=== PATIENT | male | born 1945 | race African-American/Black ===

== ENCOUNTER 2021-07-05 14:51 | Emergency (ER) | payer OTHER ==
[~2021-07-05] VITALS: Ht 177.8 cm; Wt 63.5 kg
--- NOTE | ~2021-07-05 | EMS ---
[facility] [address] [place] [address] EMS Patient Care Report Name: ENMA VU Room #: DEP AMRIK Olivo#: [id number] Admission: 07/05/21 Attend Phys: Discharge: 07/05/21 Date of : 47 Report #: [id number] THIS REPORT FOR: //name// Report Transmitted: 07/07/2021 09:17 EMS Care Summary [place], [place]/[facility] Incident [id number] @ 07/05/2021 14:11 Incident Location [address] [id number] Patient ENMA VU Male, 75 Years 1945 Patient Address [address] [id number] Patient History Chronic Obstructive Pulmonary Disease (COPD),Hypertension (HTN),Hyperlipidemia,Cardiac Murmur, Patient Allergies No known allergies, Patient Medications Atorvastatin, Plavix, Albuterol, Ropinirole, Lasix, Spironolactone, Lisinopril, Losartan, Chief Complaint Respiratory Distress Disposition Transported No Lights/[place] Dispatch Reason Breathing Problem Transported To [facility] Narrative pt states that he has been w/o his prescribed Albuterol and Prednisone for awhile. pt states that he has a appointment w/ his PCP on 07/12 to get his [facility] [address] [place] [address] EMS Patient Care Report Name: ENMA VU Room #: DEP AMRIK Olivo#: [id number] Admission: 07/05/21 Attend Phys: Discharge: 07/05/21 Date of : 47 Report #: [id number] prescriptions filled. pt states that his SOB started about 0400 this morning. pt states that he had similar symptoms about a week ago and was transported to [facility]. pt was treated and discharged w/ a 5 day albuterol and prednisone. pt states that he ran out of those prescriptions a couple of days ago. upon ems arrival, pt found sitting upright. pt w/ P36 crew. pt on DuoNeb treatment upon ems arrival. pt assisted to stretcher by ems and P36 crew. pt secured to stretcher using seat belts. Initial Vitals @14:35P: 87,BP: 147/84,CO: 1,SpO2: 98, @14:25P: 72,R: 16,BP: 140/99,Pain: 0/10,GCS: 15,SpO2: 99,Revised Trauma: 12,MO Suspected: false Assessments @14:21MENTAL:Event Oriented,Time Oriented,Place Oriented,Person Oriented,SKIN:HEENT:Eyes: Right Pupil: 3-mm,Eyes: Left Pupil: 3-mm,LUNG SOUNDS:ABDOMEN:PELVIS//GI:EXTREMITIES:Capillary Refill: Left Upper: < 2 Sec,PULSE:Radial: 2+ Normal,NEURO:@14:39MENTAL:SKIN:HEENT:LUNG SOUNDS:ABDOMEN:PELVIS//GI:EXTREMITIES:PULSE:NEURO: Impression Acute Respiratory Distress (Dyspnea) Procedures @14:21ALS AssessmentResponse: UnchangedSucceeded@PTAAlbuterol - 2.5 Milligrams (mg) - NebulizedResponse: Improved@14:243-Lead ECGResponse: UnchangedSucceeded@14:30Saline Lock 20cc (18 ga) Site: Antecubital-LeftResponse: UnchangedSucceeded@PTAAtrovent - 0.5 Milligrams (mg) - NebulizedResponse: Improved@PTAAlbuterol - 2.5 Milligrams (mg) - NebulizedResponse: Improved 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,Albuterol - 2.5 Milligrams (mg) - Nebulized,Response: Improved PRECISION MACHINE OPERATOR,Atrovent - 0.5 Milligrams (mg) - Nebulized,Response: Improved PRECISION MACHINE OPERATOR,Albuterol - 2.5 Milligrams (mg) - Nebulized,Response: Improved 14:10,Call Received 14:10,Dispatch Notified 14:11,Dispatched 14:12,En Route 14:19,On Scene 14:21,At Patient 14:21,ALS Assessment,Response: UnchangedSucceeded, 14:24,3-Lead ECG,Response: UnchangedSucceeded, 14:25,BP: 140/99 M,PULSE: 72,RR: 16 R,SPO2: 99 Ox,ETCO2: ,BG: ,PAIN: 0,GCS: 15, 14:30,Saline Lock 20cc 18 ga Site: Antecubital-Left,Response: [address] [address] EMS Patient Care Report Name: ENMA VU Room #: LOU Olivo#: [id number] Admission: 07/05/21 Attend Phys: Discharge: 07/05/21 Date of : 47 Report #: [id number] UnchangedSucceeded, 14:31,Depart Scene 14:35,BP: 147/84 M,PULSE: 87,RR: R,SPO2: 98 Ox,ETCO2: ,BG: ,PAIN: ,GCS: , 14:45,At Destination 15:05,Call Closed Disclaimer v1.1 Copyright 2020 [employer] This EMS Care Summary contains data elements from the applicable legal record (which may be displayed differently). It is designed to provide pertinent information for the following purposes: continuity of care, clinical quality, and state data reporting. The complete legal record is available to ED staff and administrators of the receiving hospital in [facility]'s Patient Tracker. All data is provided "as is."
[2021-07-05] MEDS ORDERED: ALBUTEROL2.5 MG/31 INH (15:24)
[2021-07-05] MEDS ORDERED: SYMBICORT80 MCG/4.1 INH (15:24)
[2021-07-05] MEDS ORDERED: SPIRIVA18 MCG INH (15:26)
[2021-07-05] MEDS ORDERED: INCRUSE ELLI62.5 MCG INH (15:26)
[2021-07-05] MEDS ORDERED: LISINOPRIL5 MG PO (15:27)
[2021-07-05] MEDS ORDERED: LIPITOR40 MG PO (15:27)
[2021-07-05] MEDS ORDERED: FUROSEMIDE 20 M20 MG PO (15:27)
[2021-07-05] MEDS ORDERED: PLAVIX 75 MG TA75 MG PO (15:27)
[2021-07-05] MEDS ORDERED: SPIRONOLACTONE25 MG PO (15:28)
[2021-07-05] MEDS ORDERED: PREDNISONE50 MG PO (16:16)
[2021-07-05 16:40] VITALS: BP 123/92
--- NOTE | 2021-07-07 12:19 | EKG ---
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1945 Requested By: Jewels Brown Order Number: [id number] MD: Renato Avila Measurements Intervals [place] Rate: 80 P: 87 [place]: 139 QRS: 138 QRSD: 90 T: 49 QT: 397 QTc: 458 Interpretive Statements Sinus rhythm Atrial premature complex Right atrial enlargement Low voltage, extremity leads No previous ECG available for comparison Electronically Signed On 07-07-2021 12:18:55 CDT by Renato Avila [email or web address] <ELECTRONICALLY SIGNED> By: Renato Avila MD, [facility] 07/07/21 1218 1456 1456 Renato Avila MD, [facility] /EPI
== END 2021-07-05 16:40 | disposition home or self-care (01) ==
LOC: ER 14:51
DX: J44.1 Chronic obstructive pulmonary disease with (acute) exacerbation (principal); Z79.51 Long term (current) use of inhaled steroids; Z79.899 Other long term (current) drug therapy

== ENCOUNTER 2021-08-04 04:01 | Emergency (ER) | payer OTHER ==
[~2021-08-04] VITALS: Ht 177.8 cm; Wt 61.7 kg
[~2021-08-04 04:01] MED LIST: ALBUTEROL2.5 MG/31 INH; FUROSEMIDE 20 M20 MG PO; INCRUSE ELLI62.5 MCG INH; LIPITOR40 MG PO; LISINOPRIL5 MG PO; PLAVIX 75 MG TA75 MG PO; PREDNISONE50 MG PO; SPIRIVA18 MCG INH; SPIRONOLACTONE25 MG PO; SYMBICORT80 MCG/4.1 INH
[2021-08-04 04:41] LABS: ABSOLUTE NEUTROPHILS 3.8 thou/uL (1.4-8.2); BASOPHILS 0.4 % (0.0-2.0); EOSINOPHILS 0.3 % (0.0-3.0); HEMATOCRIT 39.8 % (42.0-52.0); HEMOGLOBIN 13.5 gm/dL (14.0-18.0); LYMPHOCYTES 7.6 % (24.0-44.0); MCH 34.1 pg (26.0-34.0); MCHC 33.9 g/dL (28.0-37.0); MCV 100.6 fL (80.0-100.0); PLATELET COUNT 246 thou/uL (150-400); POLYS 89.7 % (36.0-66.0); RBC 3.96 mil/uL (4.50-6.00); RDW 16.1 % (10.5-14.5); WBC 4.3 thou/uL (4.0-11.0)
[2021-08-04 04:57] LABS: CALCIUM 8.1 mg/dL (8.5-10.1); CREATININE 0.6 mg/dL (0.7-1.3)
[2021-08-04 05:07] LABS: ALBUMIN 3.3 g/dL (3.4-5.0); TOTAL BILIRUBIN 0.5 mg/dL (0.2-1.0); TOTAL PROTEIN 7.5 g/dL (6.4-8.2)
[2021-08-04] MEDS ORDERED: PREDNISONE 20 M20 MG PO (05:32)
[2021-08-04] MEDS ORDERED: AZITHROMYCIN500 MG PO (05:53)
[2021-08-04] MEDS ORDERED: ALBUTEROL2.5 MG/31 INH (05:54)
[2021-08-04 06:18] VITALS: BP 154/91
--- NOTE | 2021-08-04 07:10 | EKG ---
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1945 Requested By: Joao Cheung Order Number: [id number] MD: Prieto Ashton Measurements Intervals [place] Rate: 87 P: 79 [place]: 151 QRS: 72 QRSD: 87 T: 33 QT: 349 QTc: 420 Interpretive Statements Sinus arrhythmia Ventricular premature complex Right atrial enlargement Low voltage, extremity leads Compared to ECG 07/05/2021 14:56:15 Ventricular premature complex(es) now present Sinus rhythm no longer present Atrial premature complex(es) no longer present Electronically Signed On 08-04-2021 7:10:18 CDT by Prieto Ashton [email or web address] <ELECTRONICALLY SIGNED> By: Prieto Ashton MD, [facility] 08/04/21 0710 0416 0416 Prieto Ashton MD, [facility] /EPI
== END 2021-08-04 06:28 | disposition home or self-care (01) ==
LOC: ER 04:01
PROVIDERS: Emergency Medicine
DX: J44.1 Chronic obstructive pulmonary disease with (acute) exacerbation (principal); Z20.822 Contact with and (suspected) exposure to COVID-19; I10 Essential (primary) hypertension